=== PATIENT | female | born 1965 | race Caucasian/White ===

== ENCOUNTER 2017-04-15 12:39 | Observation (INO) ==
[2017-04-15] MEDS ORDERED: Aspirin 81 MG TAB.CHEW PO ONE (12:43)
--- NOTE | 2017-04-15 13:03 | Emergency Department Note ---
Disposition Clinical Impression: Chest pain Qualifiers: Chest pain type: unspecified Qualified Code(s): R07.9 - Chest pain, unspecified Disposition: Admitted As Inpatient Condition: Good Forms: ED Satisfaction Letter Time of Disposition: 14:00 Chest Pain HPI - General Chief Complaint: ED Chest Pain Stated Complaint: chest pain Time Seen by Provider: 04/15/17 12:43 Source: patient Limitations: no limitations Vital Signs Reviewed: Yes Nursing Notes Reviewed: Yes - History of Present Illness HPI Narrative: 51-year-old female with intermittent chest pain for the last 4 days. The patient has multiple siblings who have of heart disease. Risk factors include smoking and family history. Pt complaint: chest pain Onset (ago): day(s) Duration: intermittent Onset: during rest (4) Pain Location: substernal, left chest Severity: moderate Severity scale (1-10): 5 Quality: tightness, aching Improves with: other Worsens with: nothing (Aspirin) Treatments prior to arrival chest pain: aspirin - Related Data Home Medications Medication Instructions Recorded Confirmed Albuterol Sulfate [Proair 2 puff IH Q4H PRN 04/18/15 08/09/16 Respiclick] Oxycodone HCl/Acetaminophen 1 tab PO Q6H PRN 04/18/15 08/09/16 [Percocet 10-325 mg Tablet] Pantoprazole Sodium [Protonix] 40 mg PO DAILY 04/18/15 08/09/16 Tizanidine HCl 4 mg PO HS PRN 04/18/15 08/09/16 Zolpidem [Ambien] 10 mg PO HS PRN 04/18/15 08/09/16 clonazePAM [Klonopin] 1 mg PO QID 04/18/15 08/09/16 Cetirizine HCl [Zyrtec] 10 mg PO DAILY 08/09/16 08/09/16 Citalopram Hydrobromide [Celexa] 40 mg PO DAILY PRN 08/09/16 08/09/16 Nicotine Gum [Nicorette gum] 4 mg BC 2-4XD PRN 08/09/16 08/09/16 SUMAtriptan succinate [Imitrex] 50 mg PO Q2H PRN 08/09/16 08/09/16 Previous Rx's Medication Instructions Recorded Cephalexin [Keflex] 500 mg PO 2-4XD #30 capsule 11/15/17 Allergies Allergy/AdvReac Type Severity Reaction Status Date / Time prednisone Allergy Anaphylaxis Verified 04/15/17 12:50 codeine AdvReac Nausea Verified 04/15/17 12:50 All systems ED: reviewed and negative except as stated. Constitutional: Denies: fever, chills, weakness, weight change Eyes: Denies: eye pain, eye discharge, vision change ENT ED: Denies: ear pain, throat pain, dental pain, hearing loss, epistaxis, congestion, dysphagia Cardiovascular: Reports: chest pain. Denies: palpitations, dyspnea on exertion , edema, syncope Respiratory: Denies: cough, dyspnea, wheezes, hemoptysis, stridor Gastrointestinal: Denies: abdominal pain, nausea, vomiting, diarrhea, constipation, hematemesis, melena, hematochezia Genitourinary: Denies: dysuria, frequency, hematuria, discharge Musculoskeletal: Denies: back pain, neck pain, arthralgia, myalgia Integumentary: Denies: rash, abrasion, lesions Neurological: Denies: headache, weakness, numbness, paresthesias, confusion, abnormal gait, vertigo Psychiatric: Denies: anxiety, depression, suicidal thoughts, homicidal thoughts , auditory hallucinations, visual hallucinations Endocrine: Denies: fatigue Hematological/Lymphatic: Denies: easy bleeding, easy bruising Allergic/Immunologic: Denies: facial swelling, urticaria Chest Pain PMH - Past Medical History Medical history: Reports: arthritis, GERD, hyperlipidemia Surgical history: Reports: other Psychiatric history: Reports: anxiety, panic disorder [employer] history: Reports: bilateral tubal ligation - Social History Smoking Status: Current every day smoker Alcohol use: Reports: none Drug use: Reports: none Physical Exam - General Limitations: no limitations General appearance: alert - Head Head exam: atraumatic, normocephalic, normal inspection - Eye Eye exam: Present: normal appearance, PERRL, EOMI - ENT ENT exam: normal exam, normal oropharynx, mucous membranes moist - Neck Neck exam: Present: normal inspection, full ROM, trachea midline - Chest Chest inspection: Present: normal inspection, symmetric chest wall rise - Respiratory Respiratory exam: Present: normal lung sounds bilaterally - Cardiovascular Cardiovascular exam: Present: regular rate, normal rhythm, normal heart sounds - Abdominal Exam Abdominal exam: Present: soft, Non-Tender. Absent: tenderness, distention, guarding, rebound, rigidity - Extremities Exam Extremities exam: Present: normal inspection, full ROM. Absent: tenderness, pedal edema - Expanded Lower Extremity Exam Neurovascular/Tendon exam: Absent: motor deficit, sensory deficit, tendon deficit Gait: observed and normal - Back Exam Back exam: Present: normal inspection, full ROM. Absent: tenderness - Neurological Exam Neurological exam: Present: alert, oriented X3 - Psychiatric Psychiatric exam: Present: normal affect, normal mood - Skin Skin exam: Present: warm, dry, intact, normal color Course - Reevaluation(s) Reevaluation #1: 51-year-old with multiple risk factors comes in with chest pain is concerning for cardiac etiology. Initial EKG shows no acute findings, initial troponin is negative. Patient will be admitted Time: 13:59 - Consultations Consultation #1: Discussed with , admit. Time: 13:59 Vital Signs Temperature 98.6 F 04/15/17 12:50 Pulse Rate 111 04/15/17 12:50 Respiratory Rate 20 04/15/17 12:50 Blood Pressure 112/69 04/15/17 12:50 O2 Sat by Pulse Oximetry 98 04/15/17 12:50 Temperature 98.6 F 04/15/17 12:50 Pulse Rate 111 04/15/17 12:50 Respiratory Rate 20 04/15/17 12:50 Blood Pressure 112/69 04/15/17 12:50 O2 Sat by Pulse Oximetry 98 04/15/17 12:50 Oxygen Delivery Oxygen Delivery Room Air Chest Pain - Lab Data Result diagrams: 04/15/17 13:04 04/15/17 13:04 Lab Results 04/15/17 04/15/17 04/15/17 Range/Units 13:04 13:04 13:04 WBC 6.7 (4.3-11.1) K/mcL RBC 5.07 H (3.82-4.97) M/mcL Hgb 15.6 H (11.5-15.4) g/dL Hct 47.2 H (35.3-44.9) % MCV 93.1 (83.0-100.0) fL MCH 30.8 (28.0-33.3) pg MCHC 33.1 (31.6-35.5) g/dL RDW 14.1 (11.5-14.5) % Plt Count 198 (140-400) K/mcL MPV 11.1 (9.4-12.4) fL Immature Gran % 0.3 (0-4) % Seg Neutrophils % 60.5 % Lymphocytes % 32.2 % Monocytes % 4.7 % Eosinophils % 1.7 % Basophils % 0.6 % Neutrophils # 4.0 (1.6-8.9) K/mcL Lymphocytes # 2.1 (0.6-4.6) K/mcL Monocytes # 0.3 (0.0-1.3) K/mcL Eosinophils # 0.1 (0.0-0.6) K/mcL Basophils # 0.0 (0.0-0.2) K/mcL PT 10.6 (9.4-12.1) Seconds INR 1.0 APTT 28.7 (26.0-36.0) Seconds Sodium 140 (136-145) mEq/L Potassium 3.8 (3.5-5.1) mEq/L Chloride 107 (98-107) mEq/L Carbon Dioxide 27 (23-29) mEq/L BUN 11 (6-20) mg/dL Creatinine 0.69 (0.60-1.20) mg/dL Est GFR ( Amer) > 60 (> 60) Est GFR (Non-Af Amer) > 60 (> 60) BUN/Creatinine Ratio 16 (6-26) Glucose 118 H (70-105) mg/dL Calculated Osmolality 290 (280-300) Calcium 9.5 (8.6-10.3) mg/dL Troponin I (< 0.04) ng/mL 04/15/17 Range/Units 13:04 WBC (4.3-11.1) K/mcL RBC (3.82-4.97) M/mcL Hgb (11.5-15.4) g/dL Hct (35.3-44.9) % MCV (83.0-100.0) fL MCH (28.0-33.3) pg MCHC (31.6-35.5) g/dL RDW (11.5-14.5) % Plt Count (140-400) K/mcL MPV (9.4-12.4) fL Immature Gran % (0-4) % Seg Neutrophils % % Lymphocytes % % Monocytes % % Eosinophils % % Basophils % % Neutrophils # (1.6-8.9) K/mcL Lymphocytes # (0.6-4.6) K/mcL Monocytes # (0.0-1.3) K/mcL Eosinophils # (0.0-0.6) K/mcL Basophils # (0.0-0.2) K/mcL PT (9.4-12.1) Seconds INR APTT (26.0-36.0) Seconds Sodium (136-145) mEq/L Potassium (3.5-5.1) mEq/L Chloride (98-107) mEq/L Carbon Dioxide (23-29) mEq/L BUN (6-20) mg/dL Creatinine (0.60-1.20) mg/dL Est GFR ( Amer) (> 60) Est GFR (Non-Af Amer) (> 60) BUN/Creatinine Ratio (6-26) Glucose (70-105) mg/dL Calculated Osmolality (280-300) Calcium (8.6-10.3) mg/dL Troponin I < 0.03 (< 0.04) ng/mL - EKG Data EKG attestation: Yes I reviewed and interpreted this EKG. EKG shows normal: sinus rhythm Rate: normal Rhythm: NSR Interpretation: no acute changes Heart Score - Score History: Highly Suspicious Age: 45-65 Risk Factors: Equal/Greater than 3 risk factor or history of atherosclerotic disease Troponin: Less than normal limit
[2017-04-15 13:30] LABS: Prothrombin Time 10.6 Seconds (9.4-12.1)
[2017-04-15 13:32] LABS: Activated Partial Thrombo Time 28.7 Seconds (26.0-36.0)
[2017-04-15 13:40] LABS: Basophils % 0.6 %; Eosinophils # 0.1 K/mcL (0.0-0.6); Eosinophils % 1.7 %; Hematocrit 47.2 % (35.3-44.9); Hemoglobin 15.6 g/dL (11.5-15.4); Immature Granulocytes % 0.3 % (0-4); Lymphocytes # 2.1 K/mcL (0.6-4.6); Lymphocytes % 32.2 %; Mean Corpuscular HGB Conc 33.1 g/dL (31.6-35.5); Mean Corpuscular Hemoglobin 30.8 pg (28.0-33.3); Mean Corpuscular Volume 93.1 fL (83.0-100.0); Mean Platelet Volume 11.1 fL (9.4-12.4); Monocytes # 0.3 K/mcL (0.0-1.3); Monocytes % 4.7 %; Platelet Count 198 K/mcL (140-400); Red Blood Count 5.07 M/mcL (3.82-4.97); Red Cell Distribution Width 14.1 % (11.5-14.5); Segmented Neutrophils % 60.5 %
[2017-04-15 13:49] LABS: BUN/Creatinine Ratio 16 (6-26); Blood Urea Nitrogen 11 mg/dL (6-20); Calcium 9.5 mg/dL (8.6-10.3); Carbon Dioxide 27 mEq/L (23-29); Chloride 107 mEq/L (98-107); Glucose 118 mg/dL (70-105); Osmolality,Calculated 290 (280-300); Potassium 3.8 mEq/L (3.5-5.1); Sodium 140 mEq/L (136-145); eGFR For African Americans > 60 (> 60); eGFR For Non-African Americans > 60 (> 60)
[2017-04-15] MEDS ORDERED: Nicotine 21 MG PATCH.TD24 TD STA (14:22)
--- NOTE | 2017-04-15 15:12 | Internal Med History&Physical ---
Date of Encounter: 04/15/17 Time of Encounter: 15:06 Assessment and Plan (1) Unstable angina Current visit: Yes Status: Acute Patient with risk factors of smoking high cholesterol strong family history of CAD described in history of present illness presented with chest pain consistent with unstable angina and cardiology n consult to keep patient nothing by mouth after midnight for possible cardiac catheter tomorrow. (2) FH: CAD (coronary artery disease) Current visit: Yes Status: Acute Strong family history of CAD described in history of present illness (3) Hyperlipidemia Current visit: No Status: Chronic Chronic recheck in a.m. Qualifiers: Hyperlipidemia type: pure hypercholesterolemia Qualified Code(s): E78.00 - Pure hypercholesterolemia, unspecified; E78.0 - Pure hypercholesterolemia (4) Anxiety Current visit: No Status: Chronic Chronic resume home medication (5) GERD (gastroesophageal reflux disease) Current visit: No Status: Chronic Chronic without esophagitis Qualifiers: Esophagitis presence: without esophagitis Qualified Code(s): K21.9 - Gastro -esophageal reflux disease without esophagitis (6) Tobacco abuse Current visit: No Status: Chronic Chronic Internal Medicine - H&P: HPI Chief complaint: chest pain Admitted From: Emergency Dept Plans for Post Hospital Care: Home History of present illness: Ms. Richards is a 51 year old female 51 years old lady with history of smoking, GERD, high cholesterol, anxiety, strong family history of CAD one brother at 38 of massive myocardial infarction, two sisters has had CABG one brother has also had CABG another brother at age of 49 and had CABG prior his both parents has CAD had. Patient was admitted April 2015 with chest pain at that time had a nuclear stress test done which was negative for ischemia and EF was 73% 2- D echo at that time with about 60%. Patient presented this time with recurrent chest over the last 4 days describes a heaviness pressure going up to the right side of her neck associated with shortness of breath and sometime sweats also has some sharp pain in the back of her neck. Had more episode today and she came into the emergency room she is now chest pain-free EKG is abnormal but unremarkable troponin so far is negative denies any nausea Past Med Surg Social Fam HX - Past Medical History Medical history: arthritis, GERD, hyperlipidemia Psychiatric history: anxiety, panic disorder - Past Surgical History Surgical History: other - Social History Smoking Status: Current every day smoker Smokeless Tobacco Status: No Alcohol use: none Drug use: none - Family History Mother Living Status: Hx Family Cardiac Disorders: Yes Father Living Status: Hx Family Cardiac Disorders: Yes (HTN, [place]) Internal Medicine - H&P: Meds Albuterol Sulfate [Proair Respiclick] 2 puff IH Q4H PRN 04/18/15 [History] Oxycodone HCl/Acetaminophen [Percocet 10-325 mg Tablet] 1 tab PO Q6H PRN [History] Zolpidem [Ambien] 10 mg PO HS PRN 04/18/15 [History] clonazePAM [Klonopin] 1 mg PO QID 04/18/15 [History] Citalopram Hydrobromide [Celexa] 40 mg PO DAILY PRN 08/09/16 [History] Nicotine Gum [Nicorette gum] 4 mg BC 2-4XD PRN 08/09/16 [History] SUMAtriptan succinate [Imitrex] 50 mg PO Q2H PRN 08/09/16 [History] 3 Allergy/AdvReac Type Severity Reaction Status Date / Time prednisone Allergy Anaphylaxis Verified 04/15/17 12:50 codeine AdvReac Nausea Verified 04/15/17 12:50 All Systems PM: A 10-system review of systems was performed and is negative for pertinent findings except as documented above in the HPI. - Constitutional Constitutional: no chills, no fever(s), no night sweats - EENT Eyes: no change in vision, no discharge, no pain, no photophobia Ears: no ear discharge, no ear pain, no tinnitus Nose, mouth and throat: no dysphagia, no nasal discharge, no neck pain, no sore throat - Cardiovascular Cardiovascular ROS IM: chest pain, dyspnea, dyspnea on exertion - Respiratory Respiratory: dyspnea - Gastrointestinal Gastrointestinal: no abdominal pain, no diarrhea, no hematemesis, no hematochezia, no melena, no nausea, no vomiting - Genitourinary Genitourinary: no change in urinary stream, no dysuria, no flank pain, no hematuria - Musculoskeletal Musculoskeletal ROS IM: no numbness, no tingling - Constitutional Vitals: Temp Pulse Resp BP Pulse Ox 98.6 F 74 18 104/60 98 04/15/17 12:50 04/15/17 14:35 04/15/17 14:35 04/15/17 14:35 04/15/17 14:39 - Head Head exam: Present: atraumatic, normocephalic - Eye Eye exam: Present: PERRL, conjuntiva pink, sclera anicteric Pupils: Present: PERRL - Neck Neck exam general surgery: Present: supple, trachea midline. Absent: lymphadenopathy - Respiratory Respiratory exam: Present: CTAB. Absent: accessory muscle use, rales, rhonchi, wheezes - Cardiovascular Cardiovascular exam: Present: RRR, +S1, +S2. Absent: diastolic murmur, gallop, rubs, systolic murmur - GI/Abdominal GI/Abdominal exam: Present: normal bowel sounds, soft, no peritoneal signs. Absent: distended, tenderness - Extremities Exam Extremities exam: Present: warm, radial pulses palpable and symmetrical. Absent : calf tenderness, cyanotic, pedal edema - Neurological Exam Neurological exam: Present: CN II-XII intact, oriented X3, no focal deficits. Absent: pronater drift, facial droop, speech deficit - Skin Skin exam: Present: dry, intact Internal Med - H&P Results - Labs CBC & Chem 7: 04/15/17 13:04 04/15/17 13:04
[2017-04-15] MEDS ORDERED: Naloxone 0.4 MG/ML INJ IVP PRN (15:16)
[2017-04-15] MEDS ORDERED: SUMAtriptan succinate 50 MG TABLET PO PRN (15:19)
[2017-04-15] MEDS ORDERED: *HR* OxyCODONE/APAP 10/325 TABLET PO PRN (15:19)
--- NOTE | 2017-04-15 15:24 | Cardiology Consult Note ---
Date of Encounter: 04/15/17 Time of Encounter: 15:40 Assessment and Plan (1) Chest pain Current Visit: Yes Status: Acute Patient presents with chest pain. Initial troponin negative. TTE 04/18/2015: LVEF 60%, normal LVDD, normal RV structure and function, no significant valvular disease, normal wall motion Exercise nuclear stress 04/19/2015: good exercise capacity, rate PVC's noted during exercise, exercise ECG negative for ischemia, gated EF=73%, perfusion imaging negative for ischemia/infarct. Risk factors for CAD: positive family history, HTN, HLD, tobacco use. Significant family hx for premature CAD (brother at 38 from [place], sister at 43 from [place]/hx of CABG, father at 49 from [place]/hx of CABG; older brother and sister s/p CABG). Continue to cycle troponin/ECG's. Check echocardiogram. Start asa, statin. BP borderline, await LHC findings prior to starting BB. Recommend LHC with possible PCI; alternatives, risks, and benefits discussed she is agreeable to proceed. NPO after MN for LHC 04/16/17. Qualifiers: Chest pain type: chest pain due to myocardial ischemia Ischemic chest pain type: unstable angina pectoris Qualified Code(s): I20.0 - Unstable angina (2) Hyperlipidemia Current Visit: Yes Status: Chronic LDL [id number]. Will start statin. Lifestyle modifications, heart healthy diet. Fasting LP in am. Qualifiers: Hyperlipidemia type: pure hypercholesterolemia Qualified Code(s): E78.00 - Pure hypercholesterolemia, unspecified; E78.0 - Pure hypercholesterolemia (3) Tobacco abuse Current Visit: Yes Status: Chronic Tobacco cessation counseling. Discussion w patient/family: The assessment and plan as outlined above was discussed with the patient and/or family members who expressed understanding and agreement. All questions were answered. Thank you for involving us in the care of your patient. Please call with any questions. The patient will be discussed and reviewed with Dr. Baeza; changes to be made accordingly. History of Present Illness Consult date: 04/15/17 Requesting physician: Maria Keys Consult reason: Chest pain Chief complaint: Chest pain History of present illness: Ms. Richards is a 51 year old female with PMHx significant for HTN, HLD, GERD, anxiety, and tobacco abuse who presented to the ED with complaints of chest pain that has been intermittent for the past 4 days. Pain is described as heaviness/burning and has radiated to neck/jaw. Associated symptoms include diaphoresis (mild), nausea, and 2 week hx of significant fatigue. Reports took OTC antacids without improvement in symptoms. She reports discomfort awoke her from sleep this AM which prompted ED evaluation. Initial troponin negative. ECG shows RBBB, no significant changes from prior. Prior CV testing: TTE 04/18/2015: LVEF 60%, normal LVDD, normal RV structure and function, no significant valvular disease, normal wall motion Exercise nuclear stress 04/19/2015: good exercise capacity, rate PVC's noted during exercise, exercise ECG negative for ischemia, gated EF=73%, perfusion imaging negative for ischemia/infarct. Past Med Surg Social Fam HX - Past Medical History Attestation: Yes The following information was validated with the patient. Source: patient, old records reviewed Medical history: arthritis, GERD, hyperlipidemia, hypertension Psychiatric history: anxiety, panic disorder - Past Surgical History Surgical History: other - Social History Smoking Status: Current every day smoker Packs per day: 1.5 ppd Smokeless Tobacco Status: No Alcohol use: none Drug use: none - Family History Mother Living Status: Hx Family Cardiac Disorders: Yes Father Living Status: Cause of : [place] Hx Family Cardiac Disorders: Yes (CAD s/p CABG) Brother Living Status: Age at : 38 Cause of : [place] Hx Family Cardiac Disorders: Yes (CAD) Sister Living Status: Age at : 43 Cause of : [place] Hx Family Cardiac Disorders: Yes (CAD s/p CABG) Medications and Allergies Albuterol Sulfate [Proair Respiclick] 2 puff IH Q4H PRN 04/18/15 [History] Oxycodone HCl/Acetaminophen [Percocet 10-325 mg Tablet] 1 tab PO Q6H PRN [History] Zolpidem [Ambien] 10 mg PO HS PRN 04/18/15 [History] clonazePAM [Klonopin] 1 mg PO QID 04/18/15 [History] Citalopram Hydrobromide [Celexa] 40 mg PO DAILY PRN 08/09/16 [History] Nicotine Gum [Nicorette gum] 4 mg BC 2-4XD PRN 08/09/16 [History] SUMAtriptan succinate [Imitrex] 50 mg PO Q2H PRN 08/09/16 [History] 3 Allergy/AdvReac Type Severity Reaction Status Date / Time prednisone Allergy Anaphylaxis Verified 04/15/17 12:50 codeine AdvReac Nausea Verified 04/15/17 12:50 All Systems Review: A 10-system review of systems was performed and is negative for pertinent findings except as documented above in the HPI. - Cardiovascular Cardiovascular: as per HPI Physical Examination General: Conversant, No Apparent Distress HEENT: Atraumatic, Normocephaly, Mucus Membranes Moist Neck: No JVD, Normal carotid pulses Cardiac: Reg Rate and Rhythm, Normal S1 and S2, No Murmur Lungs: Normal Breath Sounds, No Wheeze, Rales, Rhonchi Neuro: Alert and responsive, No focal deficits noted Abdomen: Soft, Non-Tender Skin: No rashes noted on visualized skin Musculoskeletal: No Chest Wall Tenderness Extremities: No Clubbing, No Cyanosis, No Edema, Normal Pulses Results 04/15/17 13:04 04/15/17 13:04 Active Medications Albuterol Sulfate (Albuterol Inhaler) 2 puff IH Q4H PRN PRN Reason: Shortness Of Breath Aspirin (Aspirin Ec) 81 mg PO DAILY BASSEM Stop: 10/16/17 09:01 Atorvastatin Calcium (Lipitor) 40 mg PO HS BASSEM Stop: 10/15/17 21:01 Citalopram Hydrobromide (Celexa) 40 mg PO DAILY PRN PRN Reason: Anxiety Clonazepam (Klonopin) 1 mg PO QID BASSEM Stop: 10/15/17 17:01 Enoxaparin Sodium (Lovenox) 40 mg SQ 0600 BASSEM PRN Reason: Protocol Stop: 10/17/17 06:01 Sodium Chloride (0.9 % Sodium Chloride) 1,000 mls @ 75 mls/hr IVC .[id number] BASSEM Stop: 04/16/17 18:09 Naloxone HCl (Narcan) 0.4 mg IVP Q2MIN PRN PRN Reason: SEE COMMENTS Stop: 10/15/17 15:17 Oxycodone/Acetaminophen (Percocet 10/325) 1 each PO Q6H PRN PRN Reason: Pain Stop: 10/15/17 15:20 Sumatriptan Succinate (Imitrex) 50 mg PO Q2H PRN PRN Reason: Migraine Headache Stop: 10/15/17 15:20 Zolpidem Tartrate (Ambien) 10 mg PO HS PRN; Protocol PRN Reason: Sleep Stop: 10/15/17 15:20 - Imaging and Cardiology Stress Test: report reviewed Echo: report reviewed - EKG Interpretation EKG results cardiology: personally reviewed Consult Discharge Plan - Plan Referrals: Candelario Cosby DO [Primary Care Provider] -
[2017-04-15] MEDS: 0.9 % Sodium Chloride 1,000 ML IVC SCH (16:44)
[2017-04-15] MEDS: clonazePAM 1 MG TABLET PO SCH ×2 (16:44→22:09)
[2017-04-15] MEDS ORDERED: *HR* Morphine 2 MG/ML SYRINGE IVP ONE (16:56)
[2017-04-15] MEDS ORDERED: Nitroglycerin 1 INCH/GM PACKET TP ONE (21:34)
[2017-04-16 01:44] LABS: Hematocrit 39.8 % (35.3-44.9); Hemoglobin 13.4 g/dL (11.5-15.4); Immature Platelets 6.6 % (1.1-6.1); Mean Corpuscular HGB Conc 33.7 g/dL (31.6-35.5); Mean Corpuscular Hemoglobin 30.9 pg (28.0-33.3); Mean Corpuscular Volume 91.7 fL (83.0-100.0); Mean Platelet Volume 11.1 fL (9.4-12.4); Red Blood Count 4.34 M/mcL (3.82-4.97); Red Cell Distribution Width 14.2 % (11.5-14.5)
[2017-04-16 02:12] LABS: Alanine Aminotransferase 9 Units/L (7-52); Albumin 3.5 g/dL (3.5-5.7); Alkaline Phosphatase 60 Units/L (34-104); Aspartate Amino Transferase 9 Units/L (13-39); BUN/Creatinine Ratio 22 (6-26); Bilirubin,Total 0.3 mg/dL (0.3-1.0); Blood Urea Nitrogen 15 mg/dL (6-20); Calcium 8.7 mg/dL (8.6-10.3); Carbon Dioxide 26 mEq/L (23-29); Chloride 108 mEq/L (98-107); Glucose 94 mg/dL (70-105); Osmolality,Calculated 287 (280-300); Potassium 3.8 mEq/L (3.5-5.1); Sodium 138 mEq/L (136-145); Total Protein 5.8 g/dL (6.4-8.9); eGFR For African Americans > 60 (> 60); eGFR For Non-African Americans > 60 (> 60)
[2017-04-16 02:13] LABS: Albumin/Globulin Ratio 1.5 (1.1-2.2); Chol/HDL Ratio 4.4 (0-4.9); Cholesterol 188 mg/dL (< 200); Globulin 2.3 g/dL (2.4-3.5); HDL Cholesterol 43 mg/dL (40-59); LDL Cholesterol,Calculated 100 mg/dL (0-99); Triglycerides 225 mg/dL (< 150)
[2017-04-16] MEDS: 0.9 % Sodium Chloride 1,000 ML IVC SCH (06:02)
[2017-04-16] MEDS ORDERED: Nitroglycerin 1,000 MCG/10 ML VIAL IV ONE (07:46)
[2017-04-16] MEDS ORDERED: Heparin 1,000 UNITS/500 mL 500 ML ONE (07:46)
[2017-04-16] MEDS ORDERED: *HR* Heparin 10,000 UNIT/10 ML VIAL ONE (07:46)
[2017-04-16] MEDS ORDERED: 0.9 % Sodium Chloride 1,000 ML ONE (07:46)
[2017-04-16] MEDS ORDERED: ISOVUE-370 200 ML INFUS..BTL IV ONE (07:48)
[2017-04-16] MEDS ORDERED: *HR* FentaNYL (PF) 100 MCG/2 ML VIAL ONE (08:52)
[2017-04-16] MEDS ORDERED: *HR* Midazolam HCl 2 MG/2 ML VIAL ONE (08:52)
--- NOTE | 2017-04-16 08:53 | Pre-Sedation Evaluation ---
Pre-sedation evaluation - Pre-sedation checklist Date of procedure: 04/16/17 Procedure: [facility] Recent Vitals: Last Vital Signs Temp 97.8 F 04/16/17 08:06 Pulse 83 04/16/17 08:06 Resp 16 04/16/17 08:06 BP 101/66 04/16/17 08:06 Pulse Ox 91 04/16/17 08:06 H&P (including ROS) documented in medical record: Yes Previous reaction to sedatives/anesthetics: No Dietary Status: NPO 6 hours prior to procedure Dentition: No loose teeth or bridges ASA Classification *see protocol: CLASS II-Mild systemic disease Plan of Care: Pt appropriate candidate for procedure/moderate/conscious sedation
[2017-04-16] MEDS: Aspirin Enteric Coated 81 MG Tablet PO SCH (08:58)
[2017-04-16] MEDS: clonazePAM 1 MG TABLET PO SCH ×4 (08:59→20:41)
--- NOTE | 2017-04-16 09:44 | Invasive Diagnostic Lab Proc ---
Name: Ming Richards Date of Study: 04/16/2017 Date: 1965 Ht: 63.0in Medical Record#: [id number] Age: 51 Wt: 114.64lb Gender: Female BSA: 1.53 Order #: [id number] BMI: 20.31 Physicians Procedure Physician: Clair Melgoza MD Referring MD: Referring MD: Staff Name Position Time In Maritza Disla RT Scrub 08:53 AM Cierra Unger RT (R) Monitor 08:53 AM Jim Foster RN Seam Steamer 08:53 AM Indications Indication Unstable Angina Procedures Performed Procedure L HRT ARTERY/VENTRICLE ANGIO Pre-Procedure Checklist Informed consent is complete signed and on chart. H&P is on chart. ID band is on and ID verified with patient. Patient NPO for procedure The procedure was described for the patient and questions were answered. ECG is on chart. Plan of Care Patient will tolerate the procedure without complications. Adequate level of comfort will be maintained. Hemodynamics will remain stable Patient will recover from procedure without complications. Respiratory function will be maintained. Cardiac rhythm will remain stable. Patient temperature will be maintained. Patient and/or family have verbalized understanding of the procedure. Patient Education Chief Complaint/Reason for Test: Cardiac Cath Developmental Category: Adult (18-64 years) Developmentally Appropriate for Age: Yes Learning Barriers: None Education Needs: Procedure Education Method: Verbal Information Taught: Cardiac Cath Educational Evaluation: Able to repeat information Intravenous Access Time IV Size Location DC'd Fluid/Drip Rate Units RN 08:00 AM 20g 1 1/4" Patent On Arrival Lt Antecubital 0.9NaCl 25 ml/hr Jim Foster RN Allergies Opioid codeine prednisone Vital Signs Time BP (mmHg) HR (bpm) O2 Sat. RR (bpm) LOC 09:04 AM / % 4 = Oriented but drowsy 09:04 AM / % 4 = Oriented but drowsy 09:20 AM / % 5 = Fully awake and oriented or at pre-proc level 08:52 AM 111 / 66 68 98 % 8 08:57 AM 113 / 58 65 100 % 21 09:02 AM 101 / 62 61 99 % 18 09:07 AM 101 / 56 75 100 % 26 09:12 AM 96 / 67 80 100 % 17 09:18 AM 105 / 58 82 100 % 20 09:22 AM 109 / 60 78 100 % 23 09:27 AM 109 / 60 74 100 % 14 09:32 AM 119 / 64 73 99 % 13 Procedural Medications Time Medication Dose Units Method Given By 08:53 AM 0.9NaCl 25 ml/hr Intravenous 08:54 AM Versed 1 mg Intravenous Jim Foster RN 08:54 AM Fentanyl 50 mcg Intravenous Jim Foster RN 08:56 AM Oxygen 2 L/min nasal cannula Jim Foster RN 09:05 AM Lidocaine 2% 10 ml Subcutaneous Clair Melgoza MD ASA Classification: CLASS II- Mild systemic disease (i.e. well-controlled diabetes, hypertension, asthma, cigarette smoking) Misha Score Preprocedure Postprocedure Activity 2- Moves 4 extremities sustained head lift Activity 2- Moves 4 extremities sustained head lift Circulation 2- SBP +/= 20 points of pre-anesthetic level Circulation 2- SBP +/= 20 points of pre-anesthetic level Consciousness 2- Awake and alert oriented x 3 Consciousness 2- Awake and alert oriented x 3 O2 Saturation 2- Able to maintain O2 satruation of 92% on room air O2 Saturation 2- Able to maintain O2 satruation of 92% on room air Respiratory 2- Able to deep breathe and cough well Respiratory 2- Able to deep breathe and cough well Total Score 10 Total Score 10 Contrast Agent: Isovue Diagnostic Contrast: 57 ml Total Contrast: 57 ml Fluoro Dose: 138 mGy Procedure Log Time Note Enter By 08:52 AM CathStat 08:52 AM Vitals capture started with the following parameters, Patient=Adult, Interval=5 min, Initial Ehihclax=119 mmHg, Deflation Rate=5 mmHg, Cuff placed on Right Arm 08:52 AM HR=68 bpm, RCNR=770/66 mmhg, SpO2=98.0 %, Resp=8 B/min, Comment=NSR 08:53 AM Pt arrived to laborer high density press 2 at 08:53 [email or web address] 08:53 AM Physician arrived 08:54 [email or web address] 08:53 AM Patient arrived at 08:53 with 0.9NaCl Intravenous drip @ 25 ml/hr [email or web address] 08:53 AM Maritza Disla RT Position: Scrub Time in: 08:53 [email or web address] 08:53 AM Cierra Unger RT (R) Position: Monitor Time in: 08:53 [email or web address] 08:54 AM Jim Foster RN Position: Seam Steamer Time in: 08:53 kk 08:54 AM Patient charges- Angio tray pack, Navilyst 3mm J, Pulse Oximetry and ACIST tubing and transducer kk 08:54 AM Case Delayed No kkner 08:54 AM Meet and greet completed kk 08:54 AM Sign in performed according to hospital policy. 08:54 AM Procedure start 08:54 kk 08:54 AM Time: 08:54 Versed 1 mg Intravenous Given by Jim Foster RN 08:55 AM Time: 08:54 Fentanyl 50 mcg Intravenous Given by Jim Foster RN 08:56 AM Hair removed from procedure site in holding area using clippers. Bilateral groin prepped with Chloraprep by Alicia Ricci (R), safety strap applied then patient was draped. Skin intact. 08:56 AM Time: 08:56 Oxygen on at 2 L/min per nasal cannula by Jim Foster RN 08:57 AM HR=65 bpm, OOLV=534/58 mmhg, ChN7=944.0 %, Resp=21 B/min, Comment=NSR 08:58 AM Pressure channel 1 zeroed. 09:02 AM HR=61 bpm, UIUY=872/62 mmhg, SpO2=99.0 %, Resp=18 B/min, Comment=NSR 09:04 AM Time: 09:04 Patient comfortable and pain free: Yes 09:04 AM Time: 09:04LOC: 4 = Oriented but drowsy dsp 09:05 AM Time out performed according to hospital policy 09:05 AM Clinical Presentation: Unstable angina dsp 09:05 AM Nitro patch removed by Jim Foster RN [email or web address] 09:05 AM Time: 09:05 10 ml Lidocaine 2% to right groin Subcutaneous Given by Clair Melgoza MD 09:06 AM Micro-Introducer Kit utilized for sheath placement dsp 09:06 AM Access obtained by percutaneous puncture. 6Fr 10cm Terumo [place] sheath placed in right Femoral artery. [id number] 09:07 AM contrast injected, images obtained 09:07 AM HR=75 bpm, DGFH=570/56 mmhg, IiU1=145.0 %, Resp=26 B/min, Comment=NSR 09:07 AM 5Fr FR 4 catheter inserted over the wire [facility] 09:08 AM 0.035 145cm Navilyst 3mmJ wire [id number] ell 09:09 AM Recorded Pressure: Ao, HR=70, Condition=Condition 1 (Aorta) Ao 142/92/115 09:12 AM Catheter removed dspell 09:12 AM 5Fr FL 4 catheter inserted over the wire [facility] dsp 09:12 AM HR=80 bpm, NIBP=96/67 mmhg, HbS8=636.0 %, Resp=17 B/min, Comment=NSR 09:13 AM LCA angiography performed in multiple views. 09:14 AM Recorded Pressure: Ao, HR=82, Condition=Condition 1 (Aorta) Ao 140/97/116 09:16 AM Catheter removed dsp 09:16 AM 5Fr SRC catheter inserted over the wire [id number] 09:17 AM RCA angiography performed in multiple views. 09:18 AM Recorded Pressure: Ao, HR=80, Condition=Condition 1 (Aorta) Ao 158/81/121 09:18 AM HR=82 bpm, ALUY=230/58 mmhg, YtA7=355 %, Resp=20 B/min 09:18 AM RCA angiography performed in multiple views. 09:18 AM Catheter removed 09:19 AM 5Fr Pigtail catheter inserted over the wire [facility] 09:19 AM Catheter selectively placed in left ventricle dspell 09:19 AM LV Pressures recorded dspell 09:19 AM Recorded Pressure: LV, HR=89, Condition=Condition 1 (Left Ventricle) LV 151/47/47 09:19 AM Recorded Pressure: LV, Ao, HR=87, Condition=Condition 1 (Left Ventricle) LV 147/47/48, (Aorta) Ao 145/100/121 09:20 AM Time: 09:04LOC: 4 = Oriented but drowsy dsp 09:20 AM Time: 09:04 Patient comfortable and pain free: Yes dspell 09:20 AM Catheter removed dspell 09:21 AM Procedure completed at 09:21 [email or web address] 09:21 AM Did you address JOSE J flow and Dominance? Yes 09:22 AM Sign out completed: Radiation Dose 138.10 mGy Fluoro Time: 4.5 Isovue 370 - 200ml contrast 57 ml given by Clair Melgoza MD. Complications: NoneCardiac Rehab Consult needed: NoConfirmed administered medications: Yes dsp 09:22 AM Isovue 370 - 200ml,1 Bottle(s) used. dspell 09:22 AM HR=78 bpm, JDWG=252/60 mmhg, KsC7=169.0 %, Resp=23 B/min, Comment=NSR 09:23 AM Arterial sheath pulled using manual compression and V+ Pad for 10 minutes by Pascual Melgoza MD 09:23 AM Estimated Blood Loss: minimal dsp 09:23 AM Post ECG NSR dsp 09:23 AM Post Blood Pressure 109/60 dspell 09:24 AM 09:24 Post Pulses Bilateral DP & PT 2+ dspell 09:24 AM Information taught Cardiac Cath dsp 09:24 AM Education needs Procedure, Plan of Care, and Responsibilities of Patient in Care dspell 09:24 AM Learning barriers :None 09:24 AM Education Methods Verbal 09:25 AM Education evaluation Able to repeat information dsp 09:25 AM Site status No bleeding/hematoma - Rt Groin as reported by Pascual Melgoza MD at 09:25 dsp 09:27 AM HR=74 bpm, KLQW=127/60 mmhg, IvB1=337.0 %, Resp=14 B/min, Comment=NSR 09:28 AM Opsite applied dsp 09:28 AM Report given to Priyanka BAIRD Pt taken to 3B Room #46. 09:28 dspell 09:29 AM Delay to floor No dspell 09:29 AM Patient out of room: 09:29 dspell 09:29 AM Family placed in consult room. dspell 09:29 AM Complications: None dspell 09:29 AM Fluoro Time: 4.5 dspell 09:29 AM Isovue 370 - 200ml contrast 57 ml given by Clair Melgoza MD. dspell 09:29 AM Radiation Dose 138.10 mGy dspell 09:32 AM HR=73 bpm, UUGP=070/64 mmhg, SpO2=99 %, Resp=13 B/min 09:35 AM Time: 09:20 Patient comfortable and pain free: Yes [facility] 09:35 AM Time: 09:20LOC: 5 = Fully awake and oriented or at pre-proc level [email or web address] 09:37 AM Patient out of room: 09:37 [facility] Complications Complication None None Hemodynamics Pressures Site Systolic/A Wave Diastolic/V Wave Mean AO 142 92 115 AO 140 97 116 AO 158 81 121 LV 151 47 47 LV 147 47 48 AO 145 100 121 Post Procedure Information Blood Pressure: 109/60 mmHg Rhythm: NSR Post procedural instructions were given Closure Device Time Device Success/Fail 04/16/2017 9:30:00 AM Manual Compression Site Checks Time Location Status Staff Sheath In? Note 09:25 AM Rt Groin No bleeding/hematoma Pascual Melgoza MD Pulses Time Site Pre-Procedure Post-Procedure Note Bilateral DP & PT 2+ Bilateral radial 2+ 9:24:00 AM Bilateral DP & PT 2+ Updated by Maritza Disla RT (R) on 04/16/2017 9:37:44 AM electronically signed on 04/16/2017 9:38:43 AM with status of Final
[2017-04-16] MEDS ORDERED: Acetaminophen 325 MG TABLET PO ONE (10:28)
--- NOTE | 2017-04-16 12:10 | Electrocardiograph Report ---
[place] [address] Test Date: 2017-04-15 Pat Name: Ming Richards Department: 103 Room: 3B46 Gender: F Legal Support Specialist: LESVIA : 1965 Requested By: Ty Davenport Order Number: [id number] Reading MD: Ravinder Mejia DO Measurements Intervals [place] Rate: 90 P: 75 NM: 149 QRS: 95 QRSD: 101 T: 36 QT: 371 QTc: 418 Interpretive Statements SINUS RHYTHM BORDERLINE RIGHT AXIS DEVIATION INCOMPLETE RIGHT BUNDLE BRANCH BLOCK Electronically Signed On 04-16-2017 12:08:43 EST by Ravinder Mejia DO
[2017-04-16] MEDS: Nicotine 21 MG PATCH.TD24 TD SCH (14:53)
--- NOTE | 2017-04-16 15:11 | Event Note ---
Date of Encounter: 04/16/17 Time of Encounter: 15:08 - Cardiology Event Note LHC completed and showed minimal CAD. Continue risk factor modification. No further cardiac testing. Cardiology will sign off. Please call with questions.
--- NOTE | 2017-04-16 16:53 | Internal Med Progress Note ---
Date of Encounter: 04/16/17 Time of Encounter: 13:00 - Assessment and plan (1) Right upper quadrant abdominal pain Current Visit: Yes Status: Acute Assessment and plan: Reports intermittent right upper quad pain several weeks prior to presentation. ABD CT unremarkable, lipase normal. RUQ US pending, NPO at midnight. General surgery consulted (2) Chest pain Current Visit: Yes Status: Acute Assessment and plan: presented with 4 days of epigastric pain that radiated to chest; described as a burning sensation with radiation to right side of face. EKG without acute ST changes, serial troponins negative. 04/16/17 [facility] with normal coronaries. Cardiac etiology ruled out. Suspect possible GI source; plan as noted above. Qualifiers: Chest pain type: chest pain due to myocardial ischemia Ischemic chest pain type: unstable angina pectoris Qualified Code(s): I20.0 - Unstable angina (3) Anxiety Current Visit: No Status: Chronic Assessment and plan: per hx. possibly contributing to chest pain. Continue home clonazepam, SSRI (4) GERD (gastroesophageal reflux disease) Current Visit: No Status: Chronic Assessment and plan: per hx. Start IV PPI Qualifiers: Esophagitis presence: without esophagitis Qualified Code(s): K21.9 - Gastro -esophageal reflux disease without esophagitis (5) DVT prophylaxis Current Visit: Yes Status: Acute Assessment and plan: ambulation - Constitutional Vitals: Temp Pulse Resp BP Pulse Ox 98.0 F 67 18 98/60 90 04/16/17 15:00 04/16/17 15:00 04/16/17 15:00 04/16/17 15:00 04/16/17 15:00 Internal Medicine: Result - Labs CBC & Chem 7: 04/16/17 00:52 04/16/17 00:52 Labs: Short CBC 04/16/17 Range/Units 00:52 WBC 7.2 (4.3-11.1) K/mcL Hgb 13.4 D (11.5-15.4) g/dL Hct 39.8 (35.3-44.9) % Plt Count 169 (140-400) K/mcL BMP 04/16/17 00:52 Sodium 138 Potassium 3.8 Chloride 108 H Carbon Dioxide 26 BUN 15 Creatinine 0.68 Glucose 94 Calcium 8.7 Cardiac Enzymes 04/15/17 04/16/17 04/16/17 Range/Units 19:43 00:52 07:34 Troponin I < 0.03 < 0.03 < 0.03 (< 0.04) ng/mL Liver Function 04/16/17 Range/Units 00:52 Total Bilirubin 0.3 (0.3-1.0) mg/dL AST 9 L (13-39) Units/L ALT 9 (7-52) Units/L Alkaline Phosphatase 60 (34-104) Units/L Albumin 3.5 (3.5-5.7) g/dL - ABG Interpretation ABG results: PT/INR, D-dimer PT 10.6 Seconds (9.4-12.1) 04/15/17 13:04 - Impressions Impressions Abdomen CT 04/16/17 14:40 IMPRESSION: 1. No acute abnormality. D/ / Chuck Wilson MD / Chuck Wilson MD Interpreting Provider: Chuck Wilson MD Echocardiogram 04/16/17 16:05 Impressions: LVEF 60-65%. Normal LV chamber size, wall thickness and function. Normal left ventricular diastolic function. Mild systolic anterior motion of the MV leaflets. No obstruction. Normal right ventricular structure and function. No evidence of pulmonary hypertension. No significant valvular dysfunction. Left Ventricular Wall Motion: Rest Echo Findings All wall segments showed normal motion. Findings: Study Quality * Technically adequate exam. ECG Findings * Normal sinus rhythm. Left Ventricle * LVEF 60-65%. * Normal LV chamber size, wall thickness and function. * Normal left ventricular diastolic function. * Mild systolic anterior motion of the MV leaflets. No obstruction. Right Ventricle * Normal right ventricular structure and function. Left Atrium * Mildly dilated left atrium. Right Atrium * Normal right atrial size. Interatrial Septum * Interatrial septum not well evaluated. Aortic Valve * Trileaflet aortic valve with normal function. * No aortic regurgitation. * No aortic stenosis. Mitral Valve * Normal mitral valve structure and function. * No mitral regurgitation. * No mitral stenosis. Tricuspid Valve * Normal tricuspid valve structure and function. * Trace tricuspid regurgitation. * No evidence of pulmonary hypertension. Pulmonic Valve * Normal pulmonic valve structure and function. * Trace pulmonic regurgitation. Aorta * Normally sized aortic root. Pericardium * The pericardium appears normal. IVC * Normal IVC dimensions and inspiratory collapse. Pulmonary Artery * Normal visualized portions of the main pulmonary artery. Consult Discharge Plan - Plan Referrals: Candelario Cosby DO [Primary Care Provider] -
[2017-04-16] MEDS: Pantoprazole 40 MG VIAL IVP SCH (17:52)
--- NOTE | 2017-04-16 20:18 | General Surgery Consult Note ---
Date of Encounter: 04/16/17 Time of Encounter: 20:13 Assessment and Plan (1) Right upper quadrant abdominal pain Current Visit: Yes Status: Acute 51F with biliary colic, likely chronic cholecystitis; CLD, NPO at midnight IVF at midnight pain control per primary team plan for OR tomorrow; discussed with patient History of Present Illness Consult date: 04/16/17 Reason for consult: abdominal pain Requesting physician: Laura Chambers History of present illness: 51F with long standing history of post prandial abdominal pain and bloating presents for recurrence of symptoms. Her pain is localized to the RUQ with radiation to her back with associated nausea, vomiting, and PO intolerance. She presented due to what was believed to be pain of cardiac origin. Work upo was negative. Surgery was consulted for management recommendations. Past Med Surg Social Fam HX - Past Medical History Medical history: arthritis, GERD, hyperlipidemia, hypertension Psychiatric history: anxiety, panic disorder - Past Surgical History Surgical History: other - Social History Smoking Status: Current every day smoker Packs per day: 1.5 ppd Smokeless Tobacco Status: No Alcohol use: none Drug use: none - Family History Brother Living Status: Age at : 38 Cause of : OR Hx Family Cardiac Disorders: Yes (CAD) Sister Living Status: Age at : 43 Cause of : OR Hx Family Cardiac Disorders: Yes (CAD s/p CABG) Mother Living Status: Hx Family Cardiac Disorders: Yes Father Living Status: Cause of : OR Hx Family Cardiac Disorders: Yes (CAD s/p CABG) Medications and Allergies Albuterol Sulfate [Proair Respiclick] 2 puff IH Q4H PRN 04/18/15 [History] Oxycodone HCl/Acetaminophen [Percocet 10-325 mg Tablet] 1 tab PO Q6H PRN [History] Zolpidem [Ambien] 10 mg PO HS PRN 04/18/15 [History] clonazePAM [Klonopin] 1 mg PO QID 04/18/15 [History] Citalopram Hydrobromide [Celexa] 40 mg PO DAILY PRN 08/09/16 [History] Nicotine Gum [Nicorette gum] 4 mg BC 2-4XD PRN 08/09/16 [History] SUMAtriptan succinate [Imitrex] 50 mg PO Q2H PRN 08/09/16 [History] 3 Allergy/AdvReac Type Severity Reaction Status Date / Time prednisone Allergy Anaphylaxis Verified 04/15/17 12:50 codeine AdvReac Nausea Verified 04/15/17 12:50 Review of Systems All systems PM: A 10-system review of systems was performed and is negative for pertinent findings except as documented above in the HPI. General Surgery Exam Initial Vital Signs Temp Pulse Resp BP Pulse Ox 98.6 F 111 20 112/69 98 04/15/17 12:50 04/15/17 12:50 04/15/17 12:50 04/15/17 12:50 04/15/17 12:50 - General physical appearance well developed, no distress - Eyes other (no scleral icterus), normal ocular movement - ENT normocephalic - Neck no lymphadectomy - Respiratory normal expansion, normal respiratory effort - Cardiovascular Cardiovascular exam: Present: RRR - Abdomen Abdomen general surgery: Present: soft, tender Abdominal Tenderness: Present: RUQ ((-)sharma's sign) - Integumentary Integumentary general surgery: Present: warm and dry - Neurologic Present: CN 2-12 grossly intact - Musculoskeletal Present: other (FROM in Ue/LE bilaterally) - Psychiatric Psychiatric general surgery: Present: A&Ox3 Exam Initial Vital Signs Temp Pulse Resp BP Pulse Ox 98.6 F 111 20 112/69 98 04/15/17 12:50 04/15/17 12:50 04/15/17 12:50 04/15/17 12:50 04/15/17 12:50 Results - Labs 04/16/17 00:52 04/16/17 00:52 Abnormal lab results Immature Plt Fraction 6.6 % (1.1-6.1) H 04/16/17 00:52 Chloride 108 mEq/L (98-107) H 04/16/17 00:52 AST 9 Units/L (13-39) L 04/16/17 00:52 Serum Total Protein 5.8 g/dL (6.4-8.9) L 04/16/17 00:52 Globulin 2.3 g/dL (2.4-3.5) L 04/16/17 00:52 Triglycerides 225 mg/dL (< 150) H 04/16/17 00:52 LDL Cholesterol, Calc 100 mg/dL (0-99) H 04/16/17 00:52 VLDL Cholesterol, Calc 45 mg/dL (< 31) H 04/16/17 00:52 Diabetes panel 04/16/17 Range/Units 00:52 Sodium 138 (136-145) mEq/L Potassium 3.8 (3.5-5.1) mEq/L Chloride 108 H (98-107) mEq/L Carbon Dioxide 26 (23-29) mEq/L BUN 15 (6-20) mg/dL Creatinine 0.68 (0.60-1.20) mg/dL Glucose 94 (70-105) mg/dL Calcium 8.7 (8.6-10.3) mg/dL AST 9 L (13-39) Units/L ALT 9 (7-52) Units/L Alkaline Phosphatase 60 (34-104) Units/L Albumin 3.5 (3.5-5.7) g/dL Triglycerides 225 H (< 150) mg/dL HDL Cholesterol 43 (40-59) mg/dL Calcium panel 04/16/17 Range/Units 00:52 Calcium 8.7 (8.6-10.3) mg/dL Albumin 3.5 (3.5-5.7) g/dL Pituitary panel 04/16/17 Range/Units 00:52 Sodium 138 (136-145) mEq/L Potassium 3.8 (3.5-5.1) mEq/L Chloride 108 H (98-107) mEq/L Carbon Dioxide 26 (23-29) mEq/L BUN 15 (6-20) mg/dL Creatinine 0.68 (0.60-1.20) mg/dL Glucose 94 (70-105) mg/dL Calcium 8.7 (8.6-10.3) mg/dL Adrenal panel 04/16/17 Range/Units 00:52 Sodium 138 (136-145) mEq/L Potassium 3.8 (3.5-5.1) mEq/L Chloride 108 H (98-107) mEq/L Carbon Dioxide 26 (23-29) mEq/L BUN 15 (6-20) mg/dL Creatinine 0.68 (0.60-1.20) mg/dL Glucose 94 (70-105) mg/dL Calcium 8.7 (8.6-10.3) mg/dL Total Bilirubin 0.3 (0.3-1.0) mg/dL AST 9 L (13-39) Units/L ALT 9 (7-52) Units/L Alkaline Phosphatase 60 (34-104) Units/L Albumin 3.5 (3.5-5.7) g/dL All other labs normal. Consult Discharge Plan - Plan Referrals: Candelario Cosby DO [Primary Care Provider] -
[2017-04-17] MEDS ORDERED: D5% in 0.45% NACL w KCl 20 MEQ/1,000 ML MLS IVC SCH (00:01)
[2017-04-17] MEDS ORDERED: *HR* Promethazine 25 MG/ML VIAL IVP PRN (00:06)
[2017-04-17] MEDS ORDERED: *HR* Enoxaparin 40 MG/0.4 ML SYRINGE SQ SCH (06:00)
[2017-04-17] MEDS: clonazePAM 1 MG TABLET PO SCH ×2 (09:44→13:06)
[2017-04-17] MEDS: Aspirin Enteric Coated 81 MG Tablet PO SCH (09:44)
[2017-04-17] MEDS: Nicotine 21 MG PATCH.TD24 TD SCH (09:44)
[2017-04-17] MEDS: Pantoprazole 40 MG VIAL IVP SCH (09:45)
--- NOTE | 2017-04-17 10:56 | General Surgery Progress Note ---
Date of Encounter: 04/17/17 Time of Encounter: 10:55 - Assessment and Plan (1) Right upper quadrant abdominal pain Current Visit: Yes Status: Acute 51F with biliary colic, likely chronic cholecystitis; OR today; keep NPO Subjective Patient reports: no new complaints, feels better, still having pain Objective Vital Signs - Last 8 Hours Temp Pulse Resp BP Pulse Ox 04/17/17 07:05 98.9 F 84 16 87/52 95 04/17/17 03:10 97.9 F 80 16 93/60 94 Intake and Output 04/16/17 04/17/17 04/17/17 23:59 07:59 15:59 Intake Total 200 / 200 Balance 200 / 200 Intake: Oral 200 / 200 Other: # Voids 1 - General physical appearance no distress - Eyes other (no scleral icterus) - Neck Neck exam: no lymphadectomy - Respiratory normal expansion, normal respiratory effort - Cardiovascular Cardiovascular exam: Present: RRR - Abdomen Abdomen: Present: soft, tender Abdominal Tenderness: RUQ - Integumentary no rash - Neurologic CN 2-12 grossly intact - Psychiatric oriented to time, oriented to person, oriented to place - Labs 04/16/17 00:52 04/16/17 00:52 Consult Discharge Plan - Plan Referrals: Candelario Cosby DO [Primary Care Provider] -
[2017-04-17 11:27] VITALS: BP 82/48
== END 2017-04-17 14:50 | disposition left against medical advice (07) ==
LOC: EMEROO 12:39 → 3BNU 12:39 → SUATTDRO 15:16 → 3BNU 15:49
PROVIDERS: ADMIT Internal Medicine; ATTEND Registered Nurse

== ENCOUNTER 2019-04-23 10:13 | Inpatient (IN) ==
[2019-04-23] MEDS ORDERED: 0.9 % Sodium Chloride 1,000 ML IVC ONE (10:40)
[2019-04-23 11:12] LABS: Basophils % 0.1 %; Hematocrit 37.9 % (35.3-44.9); Hemoglobin 12.5 g/dL (11.5-15.4); Lymphocytes # 0.7 K/mcL (0.6-4.6); Lymphocytes % 3.9 %; Mean Corpuscular Hemoglobin 31.8 pg (28.0-33.3); Mean Corpuscular Volume 96.4 fL (83.0-100.0); Mean Platelet Volume 10.5 fL (9.4-12.4); Monocytes # 0.5 K/mcL (0.0-1.3); Monocytes % 2.4 %; Neutrophils # 17.1 K/mcL (1.6-8.9); Platelet Count 192 K/mcL (140-400); Red Blood Count 3.93 M/mcL (3.82-4.97); Red Cell Distribution Width 14.1 % (11.5-14.5); Segmented Neutrophils % 92.6 %; White Blood Count 18.5 K/mcL (4.3-11.1)
[2019-04-23] MEDS ORDERED: Isovue-370 500 ML BOTTLE IVP ONE (11:32)
[2019-04-23 11:38] LABS: Blood Urea Nitrogen 10 mg/dL (6-20); Calcium 9.2 mg/dL (8.6-10.3); Carbon Dioxide 25 mEq/L (23-29); Chloride 104 mEq/L (98-107); Glucose 162 mg/dL (70-105); Osmolality,Calculated 293 (280-300); Potassium 4.4 mEq/L (3.5-5.1); Sodium 140 mEq/L (136-145); Troponin I < 0.03 ng/mL (< 0.04)
[2019-04-23 12:24] LABS: BUN/Creatinine Ratio 14 (6-26); eGFR For African Americans > 60 (> 60); eGFR For Non-African Americans > 60 (> 60)
[2019-04-23] MEDS ORDERED: Azithromycin 500 MG in 0.9 % Sodium Chloride 250 ML IVPB ONE (13:32)
[2019-04-23] MEDS ORDERED: cefTRIAXone 1,000 MG in 0.9 % Sodium Chloride Mini Bag 100 ML IVPB ONE (13:32)
[2019-04-23] MEDS ORDERED: *HR* Heparin 5,000 UNIT/ML VIAL IVP PRN ×2 (13:33)
[2019-04-23] MEDS ORDERED: *HR* Heparin 5,000 UNIT/ML VIAL IVP ONE (13:33)
[2019-04-23] MEDS ORDERED: cefTRIAXone 1,000 MG in Water for inj. (sterile) 10 ML IVP ONE (13:45)
[2019-04-23] MEDS: Heparin 25,000 UNIT/250 ML D5W 25,000 UNIT/250 ML IV.SOLN IVC SCH (14:06)
[2019-04-23 14:14] LABS: Hematocrit 37.7 % (35.3-44.9); Hemoglobin 12.3 g/dL (11.5-15.4); Mean Corpuscular HGB Conc 32.6 g/dL (31.6-35.5); Mean Corpuscular Hemoglobin 31.7 pg (28.0-33.3); Mean Corpuscular Volume 97.2 fL (83.0-100.0); Mean Platelet Volume 10.4 fL (9.4-12.4); Platelet Count 191 K/mcL (140-400); Red Blood Count 3.88 M/mcL (3.82-4.97); Red Cell Distribution Width 14.2 % (11.5-14.5); White Blood Count 18.2 K/mcL (4.3-11.1)
[2019-04-23 14:28] LABS: INR 0.9; Prothrombin Time 10.6 Seconds (9.4-12.1)
[2019-04-23 14:31] LABS: Heparin anti-factor XA UFH < 0.04 IU/mL (0.30-0.70)
[2019-04-23] MEDS ORDERED: Ondansetron 4 MG/2 ML VIAL IVP PRN (15:59)
[2019-04-23] MEDS ORDERED: Naloxone 0.4 MG/ML INJ IVP PRN (15:59)
[2019-04-23] MEDS ORDERED: Ipratropium/Albuterol Neb 3 ML IH PRN (16:03)
[2019-04-23] MEDS ORDERED: SUMAtriptan succinate 50 MG TABLET PO PRN (16:42)
[2019-04-23] MEDS: 0.9 % Sodium Chloride 1,000 ML IVC SCH (18:10)
[2019-04-23] MEDS: *HR* OxyCODONE/APAP 10/325 TABLET PO PRN (20:23)
[2019-04-23] MEDS ORDERED: clonazePAM 1 MG TABLET PO SCH (21:00)
[2019-04-24] MEDS: 0.9 % Sodium Chloride 1,000 ML IVC SCH (01:01)
[2019-04-24 02:38] LABS: Basophils % 0.1 %; Hematocrit 33.8 % (35.3-44.9); Hemoglobin 11.1 g/dL (11.5-15.4); Immature Granulocytes % 0.8 % (0-4); Lymphocytes # 1.7 K/mcL (0.6-4.6); Lymphocytes % 10.1 %; Mean Corpuscular HGB Conc 32.8 g/dL (31.6-35.5); Mean Corpuscular Hemoglobin 31.2 pg (28.0-33.3); Mean Corpuscular Volume 94.9 fL (83.0-100.0); Mean Platelet Volume 10.6 fL (9.4-12.4); Monocytes # 0.8 K/mcL (0.0-1.3); Monocytes % 4.5 %; Neutrophils # 14.3 K/mcL (1.6-8.9); Platelet Count 179 K/mcL (140-400); Red Blood Count 3.56 M/mcL (3.82-4.97); Red Cell Distribution Width 14.3 % (11.5-14.5); Segmented Neutrophils % 84.5 %; White Blood Count 16.9 K/mcL (4.3-11.1)
[2019-04-24 02:54] LABS: BUN/Creatinine Ratio 12 (6-26); Blood Urea Nitrogen 8 mg/dL (6-20); Calcium 8.3 mg/dL (8.6-10.3); Carbon Dioxide 27 mEq/L (23-29); Glucose 141 mg/dL (70-105); Osmolality,Calculated 299 (280-300); Potassium 4.1 mEq/L (3.5-5.1); Sodium 144 mEq/L (136-145); eGFR For African Americans > 60 (> 60); eGFR For Non-African Americans > 60 (> 60)
[2019-04-24 02:55] LABS: Chloride 108 mEq/L (98-107)
[2019-04-24] MEDS: *HR* OxyCODONE/APAP 10/325 TABLET PO PRN ×2 (05:33→15:58)
[2019-04-24] MEDS ORDERED: Loratadine 10 MG TABLET PO PRN (13:25)
[2019-04-24] MEDS ORDERED: cefTRIAXone 1,000 MG in 0.9 % Sodium Chloride Mini Bag 100 ML IVPB SCH (14:00)
[2019-04-24] MEDS ORDERED: Azithromycin 500 MG in 0.9 % Sodium Chloride 250 ML IVPB SCH (14:00)
[2019-04-24] MEDS ORDERED: clonazePAM 1 MG TABLET PO PRN (15:40)
[2019-04-24] MEDS: Heparin 25,000 UNIT/250 ML D5W 25,000 UNIT/250 ML IV.SOLN IVC SCH (16:32)
[2019-04-24] MEDS: Apixaban 5 MG TABLET PO SCH ×2 (19:28→19:29)
[2019-04-24] MEDS ORDERED: Gabapentin 300 MG CAPSULE PO SCH (21:00)
[2019-04-25] MEDS: *HR* OxyCODONE/APAP 10/325 TABLET PO PRN (00:39)
[2019-04-25 02:47] LABS: Basophils % 0.3 %; Eosinophils % 0.1 %; Hematocrit 33.3 % (35.3-44.9); Hemoglobin 10.6 g/dL (11.5-15.4); Immature Granulocytes % 0.3 % (0-4); Lymphocytes # 1.3 K/mcL (0.6-4.6); Mean Corpuscular HGB Conc 31.8 g/dL (31.6-35.5); Mean Corpuscular Hemoglobin 31.2 pg (28.0-33.3); Mean Corpuscular Volume 97.9 fL (83.0-100.0); Mean Platelet Volume 10.2 fL (9.4-12.4); Monocytes # 0.5 K/mcL (0.0-1.3); Monocytes % 4.6 %; Neutrophils # 7.9 K/mcL (1.6-8.9); Platelet Count 182 K/mcL (140-400); Red Cell Distribution Width 14.5 % (11.5-14.5); Segmented Neutrophils % 81.7 %; White Blood Count 9.7 K/mcL (4.3-11.1)
[2019-04-25] MEDS: Apixaban 5 MG TABLET PO SCH (07:57)
[2019-04-25 08:14] VITALS: BP 108/63
== END 2019-04-25 10:44 | disposition home or self-care (01) | DRG 871 ==
LOC: 2NENU 10:13 → EMEROOARM 10:13 → SUATTDRO 15:59 → 2NENU 16:55
PROVIDERS: ADMIT Pharmacist; ATTEND Family Medicine

== ENCOUNTER 2019-05-03 11:57 | Inpatient (IN) ==
[2019-05-03] MEDS ORDERED: Isovue-370 500 ML BOTTLE IVP ONE (12:23)
[2019-05-03] MEDS ORDERED: *HR* FentaNYL (PF) 100 MCG/2 ML VIAL IVP ONE (13:00)
[2019-05-03 13:08] LABS: Basophils # 0.1 K/mcL (0.0-0.2); Basophils % 0.4 %; Eosinophils # 0.2 K/mcL (0.0-0.6); Eosinophils % 1.3 %; Hematocrit 44.2 % (35.3-44.9); Hemoglobin 14.3 g/dL (11.5-15.4); Immature Granulocytes % 1.5 % (0-4); Lymphocytes # 2.2 K/mcL (0.6-4.6); Mean Corpuscular HGB Conc 32.4 g/dL (31.6-35.5); Mean Corpuscular Hemoglobin 30.8 pg (28.0-33.3); Mean Corpuscular Volume 95.3 fL (83.0-100.0); Mean Platelet Volume 9.4 fL (9.4-12.4); Monocytes # 0.7 K/mcL (0.0-1.3); Monocytes % 6.3 %; Neutrophils # 8.4 K/mcL (1.6-8.9); Platelet Count 292 K/mcL (140-400); Red Blood Count 4.64 M/mcL (3.82-4.97); Red Cell Distribution Width 13.9 % (11.5-14.5); Segmented Neutrophils % 71.5 %; White Blood Count 11.7 K/mcL (4.3-11.1)
[2019-05-03 13:36] LABS: BUN/Creatinine Ratio 15 (6-26); Blood Urea Nitrogen 11 mg/dL (6-20); Calcium 9.2 mg/dL (8.6-10.3); Carbon Dioxide 28 mEq/L (23-29); Chloride 100 mEq/L (98-107); Glucose 122 mg/dL (70-105); Osmolality,Calculated 283 (280-300); Potassium 3.7 mEq/L (3.5-5.1); Sodium 136 mEq/L (136-145); Troponin I < 0.03 ng/mL (< 0.04); eGFR For African Americans > 60 (> 60); eGFR For Non-African Americans > 60 (> 60)
[2019-05-03] MEDS ORDERED: *HR* HYDROmorphone (PF) 1 MG/ML SYRINGE IVP ONE (14:46)
[2019-05-03] MEDS ORDERED: *HR* OxyCODONE Immed Rel 5 MG TABLET PO PRN (15:24)
[2019-05-03] MEDS ORDERED: Ondansetron 4 MG/2 ML VIAL IVP PRN (15:24)
[2019-05-03] MEDS ORDERED: Naloxone 0.4 MG/ML INJ IVP PRN (15:24)
[2019-05-03] MEDS ORDERED: Acetaminophen 325 MG TABLET PO PRN (15:24)
[2019-05-03] MEDS: cefTRIAXone 1,000 MG in Water for inj. (sterile) 10 ML IVP SCH (16:34)
[2019-05-03 17:23] LABS: INR 1.5; Prothrombin Time 17.1 Seconds (9.4-12.1)
[2019-05-03 17:35] LABS: Hematocrit 43.3 % (35.3-44.9); Hemoglobin 14.5 g/dL (11.5-15.4); Mean Corpuscular HGB Conc 33.5 g/dL (31.6-35.5); Mean Corpuscular Hemoglobin 31.7 pg (28.0-33.3); Mean Corpuscular Volume 94.5 fL (83.0-100.0); Mean Platelet Volume 9.5 fL (9.4-12.4); Platelet Count 326 K/mcL (140-400); Red Blood Count 4.58 M/mcL (3.82-4.97); Red Cell Distribution Width 13.9 % (11.5-14.5); White Blood Count 13.9 K/mcL (4.3-11.1)
[2019-05-03] MEDS: *HR* HYDROcodone/Acet 5/325 mg TABLET PO PRN (21:15)
[2019-05-03] MEDS: Gabapentin 300 MG CAPSULE PO SCH (21:15)
[2019-05-03] MEDS: clonazePAM 1 MG TABLET PO PRN (21:18)
[2019-05-04 05:39] LABS: Basophils % 0.4 %; Eosinophils # 0.2 K/mcL (0.0-0.6); Hematocrit 41.5 % (35.3-44.9); Hemoglobin 13.6 g/dL (11.5-15.4); Immature Granulocytes % 1.4 % (0-4); Lymphocytes # 1.9 K/mcL (0.6-4.6); Mean Corpuscular HGB Conc 32.8 g/dL (31.6-35.5); Mean Corpuscular Hemoglobin 31.1 pg (28.0-33.3); Mean Corpuscular Volume 94.7 fL (83.0-100.0); Mean Platelet Volume 9.7 fL (9.4-12.4); Monocytes # 0.9 K/mcL (0.0-1.3); Monocytes % 8.1 %; Neutrophils # 7.4 K/mcL (1.6-8.9); Platelet Count 268 K/mcL (140-400); Red Blood Count 4.38 M/mcL (3.82-4.97); Red Cell Distribution Width 13.7 % (11.5-14.5); Segmented Neutrophils % 70.1 %; White Blood Count 10.5 K/mcL (4.3-11.1)
[2019-05-04 05:53] LABS: INR 1.2; Prothrombin Time 14.1 Seconds (9.4-12.1)
[2019-05-04 05:57] LABS: BUN/Creatinine Ratio 17 (6-26); Blood Urea Nitrogen 11 mg/dL (6-20); Calcium 8.9 mg/dL (8.6-10.3); Carbon Dioxide 29 mEq/L (23-29); Chloride 98 mEq/L (98-107); Glucose 129 mg/dL (70-105); Magnesium 2.1 mg/dL (1.6-2.6); Osmolality,Calculated 279 (280-300); Potassium 3.9 mEq/L (3.5-5.1); Sodium 134 mEq/L (136-145); eGFR For African Americans > 60 (> 60); eGFR For Non-African Americans > 60 (> 60)
[2019-05-04] MEDS: *HR* HYDROcodone/Acet 5/325 mg TABLET PO PRN ×2 (08:09→21:37)
[2019-05-04] MEDS ORDERED: Loratadine 10 MG TABLET PO PRN (08:12)
[2019-05-04] MEDS ORDERED: Ketorolac 30 MG/ML VIAL IVP ONE (09:21)
[2019-05-04] MEDS: Nicotine 21 MG PATCH.TD24 TD SCH (10:00)
[2019-05-04] MEDS ORDERED: *HR* Heparin 5,000 UNIT/ML VIAL IVP PRN ×2 (11:23)
[2019-05-04] MEDS ORDERED: Heparin 25,000 UNIT/250 ML D5W 25,000 UNIT/250 ML IV.SOLN IVC SCH (11:30)
[2019-05-04] MEDS: cefTRIAXone 1,000 MG in Water for inj. (sterile) 10 ML IVP SCH (14:56)
[2019-05-04] MEDS ORDERED: Ketorolac 30 MG/ML VIAL IVP PRN (15:18)
[2019-05-04] MEDS ORDERED: *HR* OxyCODONE Immed Rel 5 MG TABLET PO PRN (15:19)
[2019-05-04 16:44] LABS: Hematocrit 40.9 % (35.3-44.9); Hemoglobin 13.2 g/dL (11.5-15.4); Mean Corpuscular HGB Conc 32.3 g/dL (31.6-35.5); Mean Corpuscular Hemoglobin 30.6 pg (28.0-33.3); Mean Corpuscular Volume 94.9 fL (83.0-100.0); Mean Platelet Volume 9.3 fL (9.4-12.4); Platelet Count 280 K/mcL (140-400); Red Blood Count 4.31 M/mcL (3.82-4.97); Red Cell Distribution Width 13.5 % (11.5-14.5); White Blood Count 9.2 K/mcL (4.3-11.1)
[2019-05-04 16:58] LABS: Heparin anti-factor XA UFH 0.49 IU/mL (0.30-0.70)
[2019-05-04 16:59] LABS: INR 1.2; Prothrombin Time 13.9 Seconds (9.4-12.1)
[2019-05-04 17:02] LABS: Total Protein 6.8 g/dL (6.4-8.9)
[2019-05-04] MEDS: Ipratropium/Albuterol Neb 3 ML IH SCH ×2 (17:06→22:03)
[2019-05-04] MEDS: predniSONE 20 MG TABLET PO SCH (17:09)
[2019-05-04 17:11] LABS: Total Protein,Pleural Fluid 4.7 g/dL
[2019-05-04 17:18] LABS: Adenovirus Not Detected (Not Detect); Bordetella Pertussis Not Detected (Not Detect); Chlamydophila pneumoniae Not Detected (Not Detect); Coronavirus 229E Not Detected (Not Detect); Coronavirus HKU1 Not Detected (Not Detect); Coronavirus NL63 Not Detected (Not Detect); Coronavirus OC43 Not Detected (Not Detect); Human Metapneumovirus Not Detected (Not Detect); Human Rhinovirus/Enterovirus Not Detected (Not Detect); Influenza A Subtype 2009 H1 Not Detected (Not Detect); Influenza B Not Detected (Not Detect); Mycoplasma pneumoniae Not Detected (Not Detect); Parainfluenza Virus 1 Not Detected (Not Detect); Parainfluenza Virus 2 Not Detected (Not Detect); Parainfluenza Virus 3 Not Detected (Not Detect); Parainfluenza Virus 4 Not Detected (Not Detect); Respiratory Syncytial Virus Not Detected (Not Detect)
[2019-05-04 17:43] LABS: RBC,Pleural Fluid 0.007 M/mcL
[2019-05-04 19:09] LABS: Appearance of Pleural Fl Hazy (Clear); Basophils,Pleural Fluid 0 %; Eosinophils,Pleural Fluid 0 %
[2019-05-04] MEDS: Gabapentin 300 MG CAPSULE PO SCH (21:28)
[2019-05-04] MEDS: clonazePAM 1 MG TABLET PO PRN (21:31)
[2019-05-04] MEDS: Budesonide/Formoterol 160/4.5 1 PUFF INH IH SCH (22:02)
[2019-05-05 03:05] LABS: Basophils % 0.2 %; Hematocrit 37.6 % (35.3-44.9); Hemoglobin 12.3 g/dL (11.5-15.4); Immature Granulocytes % 0.8 % (0-4); Lymphocytes # 0.5 K/mcL (0.6-4.6); Lymphocytes % 4.3 %; Mean Corpuscular HGB Conc 32.7 g/dL (31.6-35.5); Mean Corpuscular Volume 94.7 fL (83.0-100.0); Mean Platelet Volume 9.6 fL (9.4-12.4); Monocytes # 0.3 K/mcL (0.0-1.3); Monocytes % 2.3 %; Neutrophils # 10.7 K/mcL (1.6-8.9); Platelet Count 268 K/mcL (140-400); Red Blood Count 3.97 M/mcL (3.82-4.97); Red Cell Distribution Width 13.4 % (11.5-14.5); Segmented Neutrophils % 92.4 %; White Blood Count 11.5 K/mcL (4.3-11.1)
[2019-05-05 03:23] LABS: BUN/Creatinine Ratio 16 (6-26); Blood Urea Nitrogen 15 mg/dL (6-20); Calcium 9.3 mg/dL (8.6-10.3); Carbon Dioxide 28 mEq/L (23-29); Chloride 102 mEq/L (98-107); Glucose 245 mg/dL (70-105); Magnesium 2.3 mg/dL (1.6-2.6); Osmolality,Calculated 293 (280-300); Phosphorous 3.2 mg/dL (2.7-4.5); Potassium 4.1 mEq/L (3.5-5.1); Sodium 137 mEq/L (136-145); eGFR For African Americans > 60 (> 60); eGFR For Non-African Americans > 60 (> 60)
[2019-05-05] MEDS: Ipratropium/Albuterol Neb 3 ML IH SCH ×4 (04:32→21:41)
[2019-05-05] MEDS ORDERED: Ondansetron 4 MG/2 ML VIAL ONE (08:19)
[2019-05-05] MEDS ORDERED: Dexamethasone 4 MG/ML VIAL ONE (08:19)
[2019-05-05] MEDS ORDERED: *HR* FentaNYL (PF) 100 MCG/2 ML VIAL ONE (08:19)
[2019-05-05] MEDS ORDERED: *HR* Propofol 200 MG/20 ML VIAL IVP ONE (08:19)
[2019-05-05] MEDS ORDERED: *HR* Rocuronium Bromide 50 MG/5 ML VIAL ONE (08:19)
[2019-05-05] MEDS ORDERED: Lidocaine -MPF 4% 5 ML AMPUL ONE (08:21)
[2019-05-05] MEDS ORDERED: *HR* Succinylcholine 200 MG/10 ML VIAL IVP ONE (09:17)
[2019-05-05] MEDS: Budesonide/Formoterol 160/4.5 1 PUFF INH IH SCH ×2 (09:33→21:40)
[2019-05-05 09:48] LABS: Estimated Average Glucose 126 mg/dl
[2019-05-05] MEDS: Ringers Solution, Lactated 1,000 ML IVC SCH (10:37)
[2019-05-05] MEDS: predniSONE 20 MG TABLET PO SCH (10:37)
[2019-05-05] MEDS: Nicotine 21 MG PATCH.TD24 TD SCH (10:37)
[2019-05-05] MEDS ORDERED: Dextrose Gel 15 GM/37.5 ML TUBE PO PRN ×2 (11:37)
[2019-05-05] MEDS ORDERED: *HR* Dextrose 50 % in Water (Syg) 50 ML SYRINGE IVP PRN (11:37)
[2019-05-05] MEDS ORDERED: D5% in Water 1,000 ML IVC PRN (11:37)
[2019-05-05] MEDS: Insulin LISPRO 300 UNITS/3 ML VIAL SQ SCH ×2 (13:43→16:55)
[2019-05-05] MEDS ORDERED: Insulin LISPRO 300 UNITS/3 ML VIAL SQ SCH ×2 (16:30→21:00)
[2019-05-05] MEDS: Apixaban 5 MG TABLET PO SCH (16:54)
[2019-05-05] MEDS: cefTRIAXone 1,000 MG in Water for inj. (sterile) 10 ML IVP SCH (16:54)
[2019-05-05] MEDS: Gabapentin 300 MG CAPSULE PO SCH (20:48)
[2019-05-05] MEDS: clonazePAM 1 MG TABLET PO PRN (21:10)
[2019-05-05 21:13] LABS: Source of Body Fluid RLL BAL
[2019-05-05 22:51] LABS: Appearance of Body Fluid Slightly Hazy (Clear); Volume of Body Fluid 15 mL
[2019-05-06] MEDS ORDERED: Melatonin 3 MG TABLET PO ONE (00:57)
[2019-05-06] MEDS: Ipratropium/Albuterol Neb 3 ML IH SCH ×2 (03:44→09:43)
[2019-05-06 04:33] LABS: Basophils % 0.1 %; Lymphocytes # 1.3 K/mcL (0.6-4.6); Lymphocytes % 6.7 %; Mean Corpuscular HGB Conc 32.4 g/dL (31.6-35.5); Mean Corpuscular Hemoglobin 31.2 pg (28.0-33.3); Mean Corpuscular Volume 96.2 fL (83.0-100.0); Mean Platelet Volume 9.9 fL (9.4-12.4); Monocytes # 0.6 K/mcL (0.0-1.3); Neutrophils # 16.8 K/mcL (1.6-8.9); Platelet Count 302 K/mcL (140-400); Red Blood Count 3.43 M/mcL (3.82-4.97); Red Cell Distribution Width 13.8 % (11.5-14.5); Segmented Neutrophils % 89.2 %
[2019-05-06 04:34] LABS: Hemoglobin 10.7 g/dL (11.5-15.4); White Blood Count 18.8 K/mcL (4.3-11.1)
[2019-05-06 04:54] LABS: BUN/Creatinine Ratio 18 (6-26); Blood Urea Nitrogen 12 mg/dL (6-20); Calcium 8.8 mg/dL (8.6-10.3); Carbon Dioxide 26 mEq/L (23-29); Chloride 105 mEq/L (98-107); Glucose 172 mg/dL (70-105); Osmolality,Calculated 290 (280-300); Potassium 4.1 mEq/L (3.5-5.1); Sodium 138 mEq/L (136-145); eGFR For African Americans > 60 (> 60); eGFR For Non-African Americans > 60 (> 60)
[2019-05-06 08:04] VITALS: BP 110/70
[2019-05-06] MEDS: Insulin LISPRO 300 UNITS/3 ML VIAL SQ SCH (08:22)
[2019-05-06] MEDS: Ringers Solution, Lactated 1,000 ML IVC SCH (08:23)
[2019-05-06] MEDS: Apixaban 5 MG TABLET PO SCH (08:27)
[2019-05-06] MEDS: predniSONE 20 MG TABLET PO SCH (08:27)
[2019-05-06] MEDS: Nicotine 21 MG PATCH.TD24 TD SCH (08:27)
[2019-05-06] MEDS: Budesonide/Formoterol 160/4.5 1 PUFF INH IH SCH (09:43)
[2019-05-07 22:24] LABS: APTT (LE Anticoag) 50 sec (32-48); Diluted Russell Viper Venom 49 sec (33-44); LE Coag APTT Mixing 47 sec (32-48); LE Dil. Russell Viper Mix 1:1 43 sec (33-44); PT (LE-Anticoag) 14.3 sec (12.0-15.5); Thrombin Time 14.8 sec (14.7-19.5)
[2019-05-09 15:12] LABS: Prothrombin G20210A Specimen WHOLE BLOOD
[2019-05-09 17:31] LABS: FACV Specimen WHOLE BLOOD
[2019-05-10 08:53] LABS: Fac V Leiden R506Q Mut Result NEGATIVE
== END 2019-05-06 11:56 | disposition home or self-care (01) | DRG 163 ==
LOC: 3BNU 11:57 → EMEROOARM 11:57 → SUATTDRO 14:55 → 3BNU 15:55
PROVIDERS: ADMIT Internal Medicine; ATTEND Internal Medicine

== ENCOUNTER 2020-11-06 15:20 | Observation (INO) ==
[2020-11-06 16:33] LABS: Basophils % 0.6 %; Eosinophils # 0.1 K/mcL (0.0-0.6); Eosinophils % 1.3 %; Hematocrit 39.1 % (35.3-44.9); Hemoglobin 12.9 g/dL (11.5-15.4); Immature Granulocytes % 0.3 % (0-4); Lymphocytes # 1.8 K/mcL (0.6-4.6); Lymphocytes % 28.5 %; Mean Corpuscular Hemoglobin 30.8 pg (28.0-33.3); Mean Corpuscular Volume 93.3 fL (83.0-100.0); Mean Platelet Volume 10.3 fL (9.4-12.4); Monocytes # 0.3 K/mcL (0.0-1.3); Monocytes % 5.3 %; Neutrophils # 4.1 K/mcL (1.6-8.9); Platelet Count 148 K/mcL (140-400); Red Blood Count 4.19 M/mcL (3.82-4.97); Red Cell Distribution Width 13.8 % (11.5-14.5); White Blood Count 6.4 K/mcL (4.3-11.1)
[2020-11-06 16:42] LABS: Bilirubin,Urine Negative (Negative); Blood,Urine Negative (Negative); Clarity,Urine Clear (Clear); Color,Urine Yellow (Yellow); Glucose,Urine (UA) Normal (Normal); Ketones,Urine Negative (Negative); Leukocyte Esterase,Urine Trace (Negative); Mucus,Urine Few per lpf (None-Few); Nitrite,Urine Negative (Negative); Protein,Urine Negative (Neg-Trace); RBC,Urine 0-3 per hpf (0-3); Squamous Epithelial Cell,Urine Few per hpf (None-Few); Urobilinogen,Urine Normal (Normal); WBC,Urine 0-3 per hpf (0-3)
[2020-11-06 17:06] LABS: Alanine Aminotransferase 14 Units/L (7-52); Albumin 3.8 g/dL (3.5-5.7); Albumin/Globulin Ratio 1.2 (1.1-2.2); Alkaline Phosphatase 83 Units/L (34-104); Amylase 52 Units/L (29-103); Aspartate Amino Transferase 14 Units/L (13-39); BUN/Creatinine Ratio 13 (6-26); Bilirubin,Direct 0.1 mg/dL (0.0-0.2); Bilirubin,Indirect 0.3 mg/dL (0.0-1.0); Bilirubin,Total 0.4 mg/dL (0.3-1.0); Blood Urea Nitrogen 9 mg/dL (6-20); Calcium 9.2 mg/dL (8.6-10.3); Carbon Dioxide 28 mEq/L (23-29); Chloride 103 mEq/L (98-107); Globulin 3.1 g/dL (2.4-3.5); Glucose 122 mg/dL (70-105); Lipase 8 Units/L (11-82); Osmolality,Calculated 288 (280-300); Potassium 3.6 mEq/L (3.5-5.1); Sodium 139 mEq/L (136-145); Total Protein 6.9 g/dL (6.4-8.9); eGFR For African Americans > 60 (> 60); eGFR For Non-African Americans > 60 (> 60)
[2020-11-06 17:14] LABS: Troponin I < 0.03 ng/mL (< 0.04)
[2020-11-06] MEDS ORDERED: Isovue-370 500 ML BOTTLE IVP ONE (17:49)
[2020-11-06] MEDS ORDERED: *HR* Heparin 5,000 UNIT/ML VIAL IVP PRN ×2 (19:22)
[2020-11-06] MEDS ORDERED: *HR* Heparin 5,000 UNIT/ML VIAL IVP ONE (19:22)
[2020-11-06] MEDS ORDERED: Heparin 25,000UNIT/250ML 1/2NS 25,000 UNIT/250 ML IV.SOLN IVC SCH (19:30)
[2020-11-06 20:21] LABS: Hematocrit 36.6 % (35.3-44.9); Hemoglobin 12.5 g/dL (11.5-15.4); Mean Corpuscular HGB Conc 34.2 g/dL (31.6-35.5); Mean Corpuscular Hemoglobin 31.6 pg (28.0-33.3); Mean Corpuscular Volume 92.7 fL (83.0-100.0); Mean Platelet Volume 10.2 fL (9.4-12.4); Platelet Count 174 K/mcL (140-400); Red Blood Count 3.95 M/mcL (3.82-4.97); Red Cell Distribution Width 13.6 % (11.5-14.5); White Blood Count 6.4 K/mcL (4.3-11.1)
[2020-11-06 20:28] LABS: Heparin anti-factor XA UFH < 0.04 IU/mL (0.30-0.70)
[2020-11-06 20:29] LABS: Prothrombin Time 11.4 Seconds (9.4-12.1)
[2020-11-06] MEDS ORDERED: Ondansetron 4 MG/2 ML VIAL IVP PRN (21:17)
[2020-11-06] MEDS ORDERED: Naloxone 0.4 MG/ML INJ IVP PRN (21:17)
[2020-11-06] MEDS ORDERED: Acetaminophen 325 MG TABLET PO PRN (21:17)
[2020-11-06] MEDS ORDERED: Perflutren Lipid Microsphere 1.3 ML in 0.9 % Sodium Chloride 8.7 ML IVP PRN (21:45)
[2020-11-07] MEDS ORDERED: clonazePAM 1 MG TABLET PO PRN (02:31)
[2020-11-07] MEDS ORDERED: Gabapentin 300 MG CAPSULE PO PRN (02:31)
[2020-11-07] MEDS ORDERED: Ipratropium/Albuterol Neb 3 ML IH PRN (02:31)
[2020-11-07] MEDS ORDERED: SUMAtriptan succinate 50 MG TABLET PO PRN (02:31)
[2020-11-07 02:41] LABS: Basophils % 0.5 %; Eosinophils # 0.1 K/mcL (0.0-0.6); Eosinophils % 2.3 %; Hematocrit 35.4 % (35.3-44.9); Hemoglobin 11.8 g/dL (11.5-15.4); Immature Granulocytes % 0.2 % (0-4); Lymphocytes # 2.1 K/mcL (0.6-4.6); Lymphocytes % 35.5 %; Mean Corpuscular HGB Conc 33.3 g/dL (31.6-35.5); Mean Corpuscular Hemoglobin 30.8 pg (28.0-33.3); Mean Corpuscular Volume 92.4 fL (83.0-100.0); Mean Platelet Volume 10.2 fL (9.4-12.4); Monocytes # 0.5 K/mcL (0.0-1.3); Monocytes % 7.8 %; Neutrophils # 3.2 K/mcL (1.6-8.9); Platelet Count 172 K/mcL (140-400); Red Blood Count 3.83 M/mcL (3.82-4.97); Red Cell Distribution Width 13.7 % (11.5-14.5); Segmented Neutrophils % 53.7 %
[2020-11-07] MEDS: *HR* OxyCODONE/APAP 10/325 TABLET PO PRN ×2 (03:00→11:59)
[2020-11-07 03:01] LABS: BUN/Creatinine Ratio 14 (6-26); Blood Urea Nitrogen 9 mg/dL (6-20); Calcium 8.9 mg/dL (8.6-10.3); Carbon Dioxide 31 mEq/L (23-29); Chloride 105 mEq/L (98-107); Glucose 100 mg/dL (70-105); Magnesium 1.9 mg/dL (1.6-2.6); Osmolality,Calculated 289 (280-300); Potassium 3.7 mEq/L (3.5-5.1); Sodium 140 mEq/L (136-145); eGFR For African Americans > 60 (> 60); eGFR For Non-African Americans > 60 (> 60)
[2020-11-07] MEDS: Nicotine 21 MG PATCH.TD24 TD SCH ×2 (04:57→07:14)
[2020-11-07] MEDS ORDERED: Ketorolac 15 MG/ML VIAL IVP ONE (09:18)
[2020-11-07 12:26] VITALS: BP 104/64; PULSE 74; TEMP 97.9
[2020-11-07] MEDS ORDERED: Apixaban 5 MG TABLET PO SCH (13:15)
[2020-11-07 14:05] VITALS: O2SAT 96
== END 2020-11-07 15:13 | disposition home or self-care (01) ==
LOC: 3ANU 15:20 → EMEROOARM 15:20 → SUATTDRO 21:22 → 3ANU 22:22
PROVIDERS: ADMIT Student in an Organized Health Care Education/Training Program; ATTEND Internal Medicine